=== PATIENT | male | born 1945 | race Caucasian/White ===

== ENCOUNTER → 2019-01-18 | Outpatient (CLI) | payer OTHER, BC ==
[~2019-01-18] MED LIST: ASPIRIN EC81 M1; BAYER CHEWABLE81 MG PO; CARISOPRODOL 3350 MG PO; COLACE 100 MG100 MG PO; COLACE100 MG PO; FLOMAX0.4 MG PO; GLUCOPHAGE XR500 MG PO; GLYCOLAX POWDER17 G1 PO; MEDROLDOSEPACK; MEDROLDOSEPACK PO; NORCO 5-325 TA1 EACH PO; PERCOCET 10-321 EACH PO; PERCOCET 5-3251 EACH PO; PRAVACHOL40 MG PO; ZESTRIL20 MG PO; ZOFRAN ODT4 MG PO; ZPAK PO
== END ==
LOC: MRI 07:11
DX: S83.231A Complex tear of medial meniscus, current injury, right knee, initial encounter (principal); M25.461 Effusion, right knee; M71.21 Synovial cyst of popliteal space [Baker], right knee; X58.XXXA Exposure to other specified factors, initial encounter; Y93.89 Activity, other specified; Y92.89 Other specified places as the place of occurrence of the external cause; Y99.8 Other external cause status

== ENCOUNTER → 2019-03-09 | Outpatient (CLI) | payer OTHER, BC ==
[~2019-03-09] MED LIST changes: +FISH OIL 1,001000 M2 PO; +MULTIVITAMINS1 EAC7 PO; +NEURONTIN 300300 M1 PO; +SLO-MAG PO
== END ==
LOC: RAD 11:57
DX: K80.20 Calculus of gallbladder without cholecystitis without obstruction (principal); N20.0 Calculus of kidney; N40.0 Benign prostatic hyperplasia without lower urinary tract symptoms; R19.7 Diarrhea, unspecified; R63.4 Abnormal weight loss

== ENCOUNTER 2019-03-13 05:29 | Inpatient (IN) | payer OTHER, BC ==
[2019-03-06 08:41] LABS: HEMATOCRIT 42.7 % (42.0-52.0); HEMOGLOBIN 14.3 gm/dL (14.0-18.0); MCH 31.2 pg (26.0-34.0); MCHC 33.4 g/dL (28.0-37.0); MCV 93.4 fL (80.0-100.0); RBC 4.57 mil/uL (4.50-6.00); RDW 13.6 % (10.5-14.5); WBC 4.5 thou/uL (4.0-11.0)
[2019-03-06 08:54] LABS: PROTIME 9.7 Seconds (9.3-11.4)
[2019-03-06 08:59] LABS: ALBUMIN 3.7 g/dL (3.4-5.0); CALCIUM 9.3 mg/dL (8.5-10.1); CREATININE 1.1 mg/dL (0.7-1.3); POTASSIUM 4.3 mmol/L (3.5-5.1)
[2019-03-06 09:02] LABS: URINE BILIRUBIN NEGATIVE (Negative); URINE BLOOD 3+ (Negative); URINE CLARITY SL CLOUDY; URINE COLOR YELLOW; URINE GLUCOSE-RANDOM* NEGATIVE (Negative); URINE KETONES NEGATIVE (Negative); URINE LEUKOCYTES-REFLEX NEGATIVE (Negative); URINE NITRITE-REFLEX NEGATIVE (Negative); URINE PROTEIN (DIPSTICK) NEGATIVE (Negative); URINE SPECIFIC GRAVITY 1.025 (1.005-1.035); URINE UROBILINOGEN 0.2 E.U./dl (0.2-1.0)
[2019-03-06 09:10] LABS: SQUAMOUS 0-3 Few /LPF (0-3); URINE RBC >20 Many /HPF (0-2)
[2019-03-06 09:11] LABS: BACTERIA-REFLEX None Seen /HPF (None Seen); CASTS None Seen /LPF (None Seen); CRYSTALS None Seen /LPF (None Seen); URINE WBC-REFLEX None Seen /HPF (0-5)
--- NOTE | 2019-03-07 07:31 | EKG ---
[place] [address] [facility] [place] [address] ELECTROCARDIOGRAM REPORT Name: KAYLEIGH LYONS Room #: PRE IN [facility]#: [id number] ������������������ Admission: ������������������ Attend Phys: Cabrera Law MD Discharge: ������������������ Date of : 47 Report #: [id number] ����������������������������������������������������������������� [id number] THIS REPORT FOR: //name// [facility] Test Date: 2019-03-06 Test Time: 08:37:29 Pat Name: KAYLEIGH LYONS Department: Room: Gender: Grade Checker: adri : 1945 Requested By: Cabrera Law Order Number: [id number] MD: Jared Ledbetter Measurements Intervals [place] Rate: 85 P: 85 NM: 166 QRS: 64 QRSD: 146 T: 14 QT: 391 QTc: 465 Interpretive Statements Sinus rhythm Right bundle branch block Compared to ECG 01/25/2014 18:36:43 Premature ventricular complexes are no longer present Electronically Signed On 03-07-2019 7:30:52 CDT by Jared Ledbetter [email or web address] ��������������������������������������������� <ELECTRONICALLY SIGNED> ���������������������������������������� By: Jared Ledbetter MD, [facility] ��������������������������������������������� 03/07/19 0730 0837 0837 Jared Ledbetter MD, FACC /EPI
[~2019-03-13] VITALS: Ht 180.3 cm; Wt 86.2 kg
[~2019-03-13 05:29] MED LIST changes: -NEURONTIN 300300 M1 PO
[2019-03-13 09:32] VITALS: BP 152/78
[2019-03-13 14:28] VITALS: BP 165/97
[2019-03-13 17:55] VITALS: BP 164/97
[2019-03-13 21:40] VITALS: BP 158/80
[2019-03-14 03:31] LABS: HEMATOCRIT 37.5 % (42.0-52.0); HEMOGLOBIN 12.9 gm/dL (14.0-18.0); MCH 32.1 pg (26.0-34.0); MCHC 34.5 g/dL (28.0-37.0); RBC 4.03 mil/uL (4.50-6.00); RDW 13.7 % (10.5-14.5); WBC 9.1 thou/uL (4.0-11.0)
[2019-03-14 03:40] VITALS: BP 141/67
[2019-03-14 08:20] VITALS: BP 137/78
[2019-03-14] MEDS ORDERED: NEURONTIN 300300 M1 PO (08:49)
[2019-03-14 11:34] VITALS: BP 137/78
--- NOTE | 2019-03-15 12:52 | O ---
[facility] [place] [address] OPERATIVE REPORT Name: SERENAKAYLEIGH Clinton Room #: 429-P [facility] IN M.R.#: [id number] Admission: 03/13/19 ������������������ Attend Phys: Cabrera Law MD Discharge: 03/14/19 ������������������ Date of : 47 Report #: [id number] THIS REPORT FOR: //name// CC: Marcus Law DATE OF SERVICE: 03/13/2019 PREOPERATIVE DIAGNOSIS: Right knee medial compartment knee osteoarthritis. POSTOPERATIVE DIAGNOSIS: Right knee medial compartment knee osteoarthritis. PROCEDURE: Right medial compartment knee arthroplasty using Navio robotic assistance. SURGEON: Cabrera Law MD. ASSEMBLER: None. ANESTHESIA: LMA with an adductor canal block. IMPLANTS: [employer] size 4 Journey Oxinium medial knee femoral component, size 3 tibia and a size 8 polyethylene. TOURNIQUET TIME: 48 minutes. ESTIMATED BLOOD LOSS: 25 mL. COMPLICATIONS: None. SPECIMENS: None. CONDITION UPON LEAVING THE OPERATING ROOM: Stable. INDICATIONS FOR PROCEDURE: The patient is a 74-year-old gentleman with severe right knee medial compartment osteoarthritis. He had failed conservative measures for this and after discussion with him, elected for right medial compartment knee arthroplasty. DESCRIPTION OF PROCEDURE: Risks, benefits, alternatives, complications were discussed in detail with the patient including but not limited to risk of anesthesia; risk of damage to nerves, arteries, blood vessels; risk for infection, bleeding; risk for continued knee pain and need for reoperation. Informed consent was obtained from the patient. Right knee was appropriately marked in the preoperative holding area. Adductor canal block was placed by Anesthesia. IV Ancef was given for preoperative antibiotics. He was brought to [address] [address] OPERATIVE REPORT Name: KAYLEIGH LYONS [place] Room #: 429-P [facility] IN M.R.#: [id number] Admission: 03/13/19 ������������������ Attend Phys: Cabrera Law MD Discharge: 03/14/19 ������������������ Date of : 47 Report #: [id number] the operating room and placed in supine position on operating room table. LMA anesthesia was induced without complication. Tourniquet was placed on the right thigh. Right lower extremity was prepped and draped in normal sterile fashion. Timeout was performed, properly identifying the patient and procedure as well as instrumentation. All in the operating room were in agreement. Right lower extremity was exsanguinated, tourniquet was inflated. Tourniquet time was 48 minutes. Standard medial approach to knee was made with 10 blade through the skin. Dissection was taken down sharply to the fascia and deep flaps were developed medially and laterally. Fresh 10 blade was used to make a medial parapatellar arthrotomy and the knee was inspected. There was severe medial compartment osteoarthritis. Lateral compartment and patellofemoral compartments were well maintained. ACL was intact. It was decided to proceed with medial compartment arthroplasty. Reference pins were placed in the femur and the tibia and the knee was digitally mapped using [employer] robotic system. We sized a size 4 femur and a size 3 tibia with a 9 spacer. After acceptance of the intraoperative plan, the femoral and tibial resections were made with the Navio bur. The tibia was sized, found to be a size 3. Size 3 tibial trial was placed, pinned and drilled. A size 4 femoral trial was placed and this was trialed with a size 8 polyethylene. Knee was taken through range of motion, found to have a millimeter to millimeter and-a-half of medial laxity throughout range of motion both digitally as well as manually. Trial components were removed. Bony ends were thoroughly irrigated with normal saline. A final size 3 tibia, size 4 Journey Oxinium medial femoral component were cemented in place using standard cementation techniques. While the cement cured, a periarticular injection consisting of morphine, ropivacaine, epinephrine and Toradol was placed around the knee joint capsule. After the cement cured, tourniquet was deflated. Hemostasis was obtained with Bovie cautery. A final size 8 polyethylene was placed. A gram of vancomycin was placed deep in the joint. Fascia was closed with 0 Vicryl, skin was closed with 2-0 Vicryl, 3-0 Monocryl. Dermabond and a KIM dressing were applied. The patient tolerated this procedure well and went to the recovery room under the care of anesthesia postoperatively. ��������������������������������������������� <ELECTRONICALLY SIGNED> ���������������������������������������� By: Cabrera Law MD ��������������������������������������������� 03/15/19 1252 1131 1146 Cabrera Law MD /nt
== END 2019-03-14 16:33 | disposition home or self-care (01) | DRG 470 ==
LOC: PRE 05:29 → 4E 05:37 → TBA 05:37 → PRE 06:46 → 4E 13:31
PROVIDERS: ADMIT Orthopaedic Surgery
PROC: 0SRC0L9 Replacement of Right Knee Joint with Medial Unicondylar Synthetic Substitute, Cemented, Open Approach (ICD-10-PCS; principal; 2019-03-13)
PROC: 8E0Y0CZ Robotic Assisted Procedure of Lower Extremity, Open Approach (ICD-10-PCS; principal; 2019-03-13)
DX: M17.11 Unilateral primary osteoarthritis, right knee (principal); E11.9 Type 2 diabetes mellitus without complications; S83.241A Other tear of medial meniscus, current injury, right knee, initial encounter; M25.461 Effusion, right knee; M10.9 Gout, unspecified; X58.XXXA Exposure to other specified factors, initial encounter; Z87.442 Personal history of urinary calculi; Z80.3 Family history of malignant neoplasm of breast; Z83.3 Family history of diabetes mellitus; Y93.89 Activity, other specified; Y92.89 Other specified places as the place of occurrence of the external cause; Y99.8 Other external cause status
CPT/HCPCS: 10783; 50010; 50101; 50415; 50954; 51130; 51225; 53078; 53370; 54118; 56527; 56528; 57095; 57103; 57110; 57127; 57180; 62110; 62900; 64043; 65060; 70005

== ENCOUNTER 2019-03-16 04:41 | Emergency (ER) | payer OTHER, BC ==
[~2019-03-16] VITALS: Ht 180.3 cm; Wt 80.3 kg
[~2019-03-16 04:41] MED LIST changes: +NEURONTIN 300300 M1 PO
[2019-03-16] MEDS ORDERED: PERCOCET PO (05:03)
[2019-03-16] MEDS ORDERED: NORCO 5-325 TA1 EAC1 PO (05:03)
[2019-03-16] MEDS ORDERED: FLOMAX0.4 MG PO (05:23)
[2019-03-16 05:45] LABS: URINE BILIRUBIN NEGATIVE (Negative); URINE BLOOD NEGATIVE (Negative); URINE CLARITY CLEAR; URINE COLOR YELLOW; URINE GLUCOSE-RANDOM* NEGATIVE (Negative); URINE KETONES NEGATIVE (Negative); URINE LEUKOCYTES-REFLEX NEGATIVE (Negative); URINE NITRITE-REFLEX NEGATIVE (Negative); URINE PROTEIN (DIPSTICK) NEGATIVE (Negative); URINE SPECIFIC GRAVITY <= 1.005 (1.005-1.035); URINE UROBILINOGEN 0.2 E.U./dl (0.2-1.0)
[2019-03-16 06:10] VITALS: BP 172/85
== END 2019-03-16 06:10 | disposition home or self-care (01) ==
LOC: ER 04:41
PROVIDERS: Emergency Medicine
DX: R33.9 Retention of urine, unspecified (principal); Z96.652 Presence of left artificial knee joint; I10 Essential (primary) hypertension; E78.5 Hyperlipidemia, unspecified; E11.9 Type 2 diabetes mellitus without complications

== ENCOUNTER 2019-03-27 13:18 | Emergency (ER) | payer OTHER, BC ==
[~2019-03-27] VITALS: Ht 180.3 cm; Wt 77.1 kg
[~2019-03-27 13:18] MED LIST changes: +NORCO 5-325 TA1 EAC1 PO; +PERCOCET PO
[2019-03-27 14:18] LABS: ABSOLUTE NEUTROPHILS 5.7 thou/uL (1.4-8.2); BASOPHILS 0.4 % (0.0-2.0); EOSINOPHILS 0.5 % (0.0-3.0); HEMATOCRIT 33.7 % (42.0-52.0); HEMOGLOBIN 11.7 gm/dL (14.0-18.0); LYMPHOCYTES 13.5 % (24.0-44.0); MCH 32.1 pg (26.0-34.0); MCHC 34.8 g/dL (28.0-37.0); MCV 92.3 fL (80.0-100.0); MONOCYTES 8.2 % (1.0-8.0); PLATELET COUNT 344 thou/uL (150-400); POLYS 77.4 % (36.0-66.0); RBC 3.65 mil/uL (4.50-6.00); RDW 14.3 % (10.5-14.5); WBC 7.3 thou/uL (4.0-11.0)
[2019-03-27 14:20] LABS: CALCIUM 9.1 mg/dL (8.5-10.1); CREATININE 0.7 mg/dL (0.7-1.3)
[2019-03-27 14:26] LABS: ALBUMIN 2.7 g/dL (3.4-5.0); DIRECT BILIRUBIN 0.1 mg/dL (<0.1-0.3); MAGNESIUM 1.7 mg/dL (1.8-2.4); TOTAL BILIRUBIN 0.6 mg/dL (<0.1-1.0); TOTAL PROTEIN 6.9 g/dL (6.4-8.2)
[2019-03-27 14:42] LABS: URINE BILIRUBIN NEGATIVE (Negative); URINE BLOOD 2+ (Negative); URINE CLARITY CLEAR; URINE COLOR YELLOW; URINE GLUCOSE-RANDOM* NEGATIVE (Negative); URINE KETONES NEGATIVE (Negative); URINE LEUKOCYTES-REFLEX NEGATIVE (Negative); URINE PROTEIN (DIPSTICK) NEGATIVE (Negative); URINE UROBILINOGEN 0.2 E.U./dl (0.2-1.0)
[2019-03-27 14:45] LABS: URINE NITRITE-REFLEX POSITIVE (Negative)
[2019-03-27 15:00] LABS: BACTERIA-REFLEX 1-9 Few /HPF (None Seen); CASTS None Seen /LPF (None Seen); CRYSTALS None Seen /LPF (None Seen); SQUAMOUS None Seen /LPF (0-3); URINE WBC-REFLEX None Seen /HPF (0-5)
[2019-03-27 22:05] VITALS: BP 131/72
== END 2019-03-27 22:05 | disposition home or self-care (01) ==
LOC: ER 13:18
PROVIDERS: Emergency Medicine
DX: R33.9 Retention of urine, unspecified (principal); I10 Essential (primary) hypertension; E78.5 Hyperlipidemia, unspecified; E11.9 Type 2 diabetes mellitus without complications; R19.7 Diarrhea, unspecified

== ENCOUNTER → 2020-07-25 | Outpatient (CLI) | payer OTHER, BC | LOC: RAD 15:41 | PROVIDERS: ATTEND Family Medicine | DX: K80.20 Calculus of gallbladder without cholecystitis without obstruction (principal) ==

== ENCOUNTER → 2020-08-27 | Outpatient (CLI) | payer OTHER, BC | LOC: RAD 08:06 | PROVIDERS: ATTEND Family Medicine | DX: Z09 Encounter for follow-up examination after completed treatment for conditions other than malignant neoplasm (principal); I87.8 Other specified disorders of veins; K80.80 Other cholelithiasis without obstruction ==